=== PATIENT | male | born 1985 | race Two or more races ===

== ENCOUNTER 2024-03-07 12:49 | Inpatient (IN) | payer MEDICAID, SELFPAY ==
[2024-03-07 13:04] VITALS: BP 150/67; PULSE 107; RESP 18; TEMP 37.1; O2SAT 97; BMI 36.8
--- NOTE | 2024-03-07 13:08 | XR_ITS ---
Examination: Duplex scan of the upper extremity, unilateral left complete Date and time of exam: March 07, 2024 1325 hours INDICATIONS: Left arm swelling redness and pain post drug injection 3 days ago Technique: Duplex scan of the extremity veins using B-mode/grayscale imaging and Doppler spectral analysis and color flow Attention is directed to internal echogenicity, compression and augmentation involving these veins, color flow assessment, spectral analysis Findings: Major deep venous structures in the extremity demonstrate normal course and caliber. There is no evidence of deep vein thrombosis. Normal color flow and spectral analysis Impression: Negative for DVT..
--- NOTE | 2024-03-07 13:08 | XR_ITS ---
Examination: Forearm, left, 2 views. Technique: Forearm, AP, lateral 2 views Date and time of exam: March 07, 2024 1312 hours INDICATIONS: Injury to the forearm today, forearm pain. FINDINGS: No acute fracture No dislocation No foreign body IMPRESSION: No opaque foreign body
--- NOTE | 2024-03-07 13:11 | XR_ITS ---
Examination: CT left upper extremity with intravenous contrast, 2-D sagittal reconstructions. 2-D coronal reconstructions. 3-D reconstructions. Date and time of exam:July 05, 2024 1843 hrs. Indications: Left upper extremity redness swelling and pain today CTDI: vol (mGy):7.32 DLP: (mGycm):609 Technique: Multiple 1.25 mm axial sections of the left upper extremity post 60 cc Isovue-370 intravenous have been obtained. 2-D sagittal and coronal reconstructions have been obtained. 3-D reconstructions have been obtained. Low dose protocols were performed. One or more of the following dose reduction techniques were used; automated exposure control, adjustment of the mA and/or KV according to patient size, use of iterative reconstruction technique. Findings: Humeral head shaft intact, no shoulder dislocation Radius ulna intact No cortical bone destruction Edema in the soft tissue anterior and lateral upper arm, more prominent edema surrounding the distal humerus and the elbow with skin thickening Similar edema surrounding the entire forearm No fluid-filled drainable abscess on the CT study Impression: No cortical bone destruction Extensive cellulitis as above No soft tissue drainable abscess noted on these images Consider MRI forearm follow-up for optimum soft tissue assessment
--- NOTE | 2024-03-07 13:13 | EDNOTE_ITS ---
Upper Extremity Injury RME/HPI General Chief Complaint: Extremity Injury, Lower Stated Complaint: LEFT HAND/ARM PAIN/SWELLING Time Seen by Provider: 03/07/24 12:55 Arrival date/time: 03/07/24 12:49 RME / HPI RME / HPI narrative: 38-year-old male patient with significant history of IV drug use, using meth, according to him he missed the needle, more than 3 days ago, since then has been having worsening swelling to the left upper extremity, separately moderate. Patient denies any fever. But complain of pain, getting worse, severity moderate. Patient denies any other complaint. No medication was taken prior to arrival. Related Data Previous Rx's ?Medication ?Instructions ?Recorded clindamycin HCl 300 mg capsule 300 mg PO TID #20 caps 08/20/23 ibuprofen 600 mg tablet 600 mg PO Q8H PRN pain #14 tabs 08/20/23 Allergies Allergy/AdvReac Type Severity Reaction Status Date / Time NKA* Allergy Uncoded 03/07/24 12:52 Review of Systems Review of Systems Narrative Review of Systems: Review of system reviewed and within normal limits except mentioned in HPI ED Exam Narrative Physical exam: VITAL SIGNS: Reviewed. GENERAL APPEARANCE: Alert and interactive, follows commands, no acute distress, HEAD AND FACE: Non-traumatic. ENT: PERRL, pink conjunctivitis, eyelid no trauma, Mucous membrane moist. NECK: Supple, nontender, no nuchal rigidity. CHEST: No tenderness, no crepitus, no paradoxical movement, no retractions. LUNGS: Clear, well ventilated, symmetric, no rales, no wheezing, no ronchi, no stridor, good breath sounds bilaterally. HEART: Regular rate, regular rhythm, no murmur, no gallops. ABDOMEN: Soft, positive bowel sounds, nondistended, no guarding, nontender, no rebound, no masses, RECTAL: Deferred. GENITAL: Deferred. NEUROLOGICAL: Gross motor function intact sensory function intact, Appropriate for age. MUSCULOSKELETAL: low back nontender, full range of motion. EXTREMITIES: Left upper extremity swelling, hard to touch, nonfluctuant, from shoulder all the way to the hand, limited range of motion. SKIN: Color pink, dry, no rash, no lacerations, no abrasions, no contusions. LYMPHATICS: Deferred. Course Quality Measures none Orders Category Date Time Status COVID-19 Screening Questionnaire NOW Care 03/07/24 20:[address] Screening NOW Care 03/07/24 13:13 Active Decision to Admit X1 Care 03/07/24 20:59 Active Insert IV NOW Care 03/07/24 13:[address] UE LT w con Stat Exams 03/07/24 13:11 Completed US venous doppler UE LT Stat Exams 03/07/24 13:08 Completed XR forearm LT 2V Stat Exams 03/07/24 13:08 Completed Blood Culture (Lab) Stat Lab 03/07/24 13:46 Received CBC Stat Lab 03/07/24 13:51 Completed CMP [Comprehensive Metabolic Panel] Stat Lab 03/07/24 13:51 Completed CRP [C-Reactive Protein] Stat Lab 03/07/24 13:51 Completed ESR [Sed Rate (ESR)] Stat Lab 03/07/24 13:51 Completed HIV (1&2) Antibody Rapid Stat Lab 03/07/24 13:51 Completed Hepatitis Acute Panel Stat Lab 03/07/24 13:51 Completed Lactic Acid [Lactate (Lactic Acid)] Stat Lab 03/07/24 13:51 Completed PT [Prothrombin Time with INR] Stat Lab 03/07/24 13:51 Completed PTT [Partial Thromboplastin Time] Stat Lab 03/07/24 13:51 Completed Procalcitonin Stat Lab 03/07/24 13:51 Completed Piper/Tazo 3.375 gm [Zosyn] Med 03/07/24 20:37 Active 3.375 gm in 50 ml IV X1 Piper/Tazo Inj [Zosyn Inj] 3.375 gm Med 03/07/24 13:08 Discontinued Sodium Chloride 0.9% (P) [Ns 0.9% (P)] 50 ml IV X1 Vancomycin Inj 1,000 mg Med 03/07/24 13:09 Discontinued Sodium Chloride 0.9% 250 ml [Ns] 250 ml IV X1 Vancomycin Inj 1,000 mg Med 03/07/24 20:36 Active Sodium Chloride 0.9% 250 ml [Ns] 250 ml IV X1 Vital Signs Vital signs: Vital Signs Temperature 98.8 F 03/07/24 13:04 Pulse Rate 107 H 03/07/24 13:04 Respiratory Rate 18 03/07/24 13:04 Blood Pressure 150/67 H 03/07/24 13:04 Pulse Oximetry (%) 97 03/07/24 13:04 Oxygen Delivery Method Room Air 03/07/24 13:04 Extremity Injury MDM Narrative MDM Narrative:: 38-year-old male patient with significant history of IV drug use, using meth, according to him he missed the needle, more than 3 days ago, since then has been having worsening swelling to the left upper extremity, separately moderate. Patient denies any fever. But complain of pain, getting worse, severity moderate. Patient denies any other complaint. No medication was taken prior to arrival. Laboratory workup all came back unremarkable except for ESR 44, potassium 3.3 C- reactive protein of 15.4. CT scan of the upper extremity showed extensive cellulitis whole upper extremity. Venous Doppler ultrasound left upper extremity negative for DVT x-ray of the forearm negative for bony abnormality. Patient received IV Vanco and IV Zosyn. Spoke with Dr. Santamaria, hospitalist, and admitted the patient. Patient data External records reviewed:: None Clinical information provided by:: none Social determinants that could affect healthcare access:: substance use Patient has the following chronic illnesses:: IV drug use How is presenting disease/condition affected by chronic disease/condition?: exacerbated by Evaluation data The following diagnostics were reviewed and interpreted by me:: lab results and radiology exam(s) Lab and/or radiology exams considered but not ordered:: None Interpretation Summary: Laboratory workup all came back unremarkable except for ESR 44, potassium 3.3 C- reactive protein of 15.4. CT scan of the upper extremity showed extensive cellulitis whole upper extremity. Venous Doppler ultrasound left upper extremity negative for DVT x-ray of the forearm negative for bony abnormality. Medications / Prescriptions Medications or Prescriptions considered but not ordered:: None Medication administrations:: Medication Administration History Vancomycin HCl 1,000 mg/ (Sodium Chloride) 250 mls @ 150 mls/hr IV X1 ONE Stop: 03/07/24 22:15 Last Admin: 03/07/24 20:43 Dose: 150 mls/hr Documented By: YAA Comments: med not scanning verified with davidson hunter Piperacillin/Tazobactam/Dextrose (Zosyn) 3.375 gm in 50 mls @ 100 mls/hr IV X1 ONE Stop: 03/07/24 21:06 Last Admin: 03/07/24 20:41 Dose: 100 mls/hr Documented By: YAA Discontinued Medications Vancomycin HCl 1,000 mg/ (Sodium Chloride) 250 mls @ 150 mls/hr IV X1 ONE Stop: 03/07/24 14:48 Last Admin: 03/07/24 20:38 Dose: Not Given Documented By: AC Non-Admin Reason: Medication Not Available Piperacillin Sod/Tazobactam (Sod 3.375 gm/ Sodium Chloride) 50 mls @ 100 mls/hr IV X1 ONE Stop: 03/07/24 13:37 Last Admin: 03/07/24 20:38 Dose: Not Given Documented By: AC Non-Admin Reason: Medication Not Available Vanco, Zosyn, Consultations Consultation(s) initiated? (list below): No Diagnosis Upper Extremity Injury Differential Diagnosis: other (IV drug user, forearm abscess, upper extremity left cellulitis) Most likely diagnosis given after review of the tests above:: Left upper extremity cellulitis Admission Indicated Admission indicated?: indicated Explain why admission is indicated or not indicated:: Patient is to be admitted for further management. And IV antibiotics Admission Request Was there a request for admission?: Yes Admission Attestation Admission request attestation: Discussed case with [Dr Santamaria] from Hospitalist service regarding admission. Discussed patients ED course, exam findings, labs, and radiology results. The Hospitalist [agrees] to accept the patient for admission. Disposition Plan Disposition Plan: Admit Discharge Plan Prescriptions/Referrals Prescriptions/Med Rec: No Action clindamycin HCl 300 mg capsule 300 mg PO TID Qty: 20 0RF ibuprofen 600 mg tablet 600 mg PO Q8H PRN (Reason: pain) Qty: 14 0RF Referrals: No Primary/Family,Physician [Primary Care Provider] - In 1 week Problem List Clinical Impression: Cellulitis of left upper extremity, IVDU (intravenous drug user) Patient/Caregiver Discharge Instructions Print Language: Mexican
[2024-03-07 14:10] LABS: Lactate (Lactic Acid) 1.1 mMol/L (0.4-2.0)
[2024-03-07 14:11] LABS: Basophils % (Auto) 0 % (0-2.5); Eosinophils % (Auto) 0 % (0-10); Hemoglobin 13.5 g/dL (13.5-16.0); Immature Granulocytes % (Auto) 0 % (0-0); Immature Granulocytes Auto 0.04 Thou/mm3 (0.00-0.00); Lymphocytes # (Auto) 1.3 Thou/mm3 (1.0-4.8); Lymphocytes % (Auto) 13 % (10-50); Mean Corpuscular HGB Conc 33.8 g/dl (31.0-37.0); Mean Corpuscular Hemoglobin 28.8 pg (25.0-35.0); Mean Corpuscular Volume 85 fL (80-100); Monocytes % (Auto) 10 % (0-12); Neutrophils # (Auto) 7.7 Thou/mm3 (1.8-7.7); Neutrophils % (Auto) 76 % (37-80); Nucleated Red Blood Cell % 0 /100 WBC (0); Platelet Count 225 Thou/mm3 (140-440); RDW Standard Deviation 43.8 fL (35.1-43.9); Red Blood Count 4.69 Miln/mm3 (4.50-5.90); White Blood Count 10.1 Thou/mm3 (3.8-10.6)
[2024-03-07 14:32] LABS: Partial Thromboplastin Time 34.6 Seconds (22.0-36.0); Prothrombin Time 11.4 Seconds (9.0-12.2)
[2024-03-07 14:40] LABS: Alanine Aminotransferase 18 U/L (10-49); Albumin, Serum 4.3 gm/dL (3.5-5.0); Albumin/Globulin Ratio 1.4 (1.2-2.2); Alkaline Phosphatase 84 U/L (46-116); Anion Gap 7 (7-16); Aspartate Amino Transferase 29 U/L (0-34); BUN/Creatinine Ratio 12 Ratio (12-20); Bilirubin,Total 0.4 mg/dL (0.3-1.2); Blood Urea Nitrogen 12 mg/dL (9-23); C-Reactive Protein 15.4 mg/dL (0.0-0.9); Calcium 8.3 mg/dL (8.3-10.6); Calcium (Corrected) 8.3 mg/dL (8.5-10.1); Carbon Dioxide 27.2 mMol/L (20.0-31.0); Chloride 97 mMol/L (98-107); Estimated Creatinine Clearance 130.6 mL/min (>60); Glucose 130 mg/dL (74-106); Osmolality,Calculated 264 (275-295); Potassium 3.3 mMol/L (3.4-5.1); Procalcitonin 0.22 ng/ml (0.0-0.49); Sodium 131 mMol/L (136-145); Total Protein 7.3 gm/dL (5.7-8.2); eGFR > 60 See Note
[2024-03-07 15:20] LABS: Hepatitis A Antibody IgM Non Reactive (Non React); Hepatitis B Core Antibody IgM Non Reactive (Non React); Hepatitis B Surface Antigen Non Reactive (Non React); Hepatitis C Antibody Non Reactive (Non React); Sed Rate (ESR) 44 mm/hr (0-15)
[2024-03-07 15:21] LABS: HIV (1&2) Antibody Rapid Non-Reactive
[2024-03-07] MEDS: PIPER/TAZO 3.375 GM 3.375 GM/50 ML BAG IV (20:41)
[2024-03-07] MEDS: Vancomycin Inj 1,000 MG in SODIUM CHLORIDE 0.9% 250 ML 250 ML 150 MG IV (20:43)
--- NOTE | 2024-03-07 21:04 | EKG_ITS ---
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
[2024-03-07 21:22] VITALS: BP 127/83; PULSE 101; RESP 20; TEMP 36.9; O2SAT 97
--- NOTE | 2024-03-07 21:24 | XR_ITS ---
Examination: AP chest single view Technique one AP portable upright chest single view Exam date and time: March 07, 2024 2141 hrs. Comparison December 12, 2011 Indications: Admission chest x-ray Findings: Normal heart size Mildly prominent hilar regions No pneumonia or pulmonary edema Intact osseous structures Impression: No pneumonia or pulmonary edema
[2024-03-07] MEDS: SODIUM CHLORIDE 0.9% 1000 ML 1,000 ML 100 ML IV (21:34)
[2024-03-07] MEDS: POTASSIUM CHLORIDE 20 mEq TABCR 40 MEQ PO (21:34)
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
[2024-03-07] MEDS: CALCIUM CARBONATE 600 MG TABLET PO (22:40)
[2024-03-07 23:14] LABS: Hepatitis A Antibody IgM Non Reactive (Non React); Hepatitis B Core Antibody IgM Non Reactive (Non React); Hepatitis B Surface Antigen Non Reactive (Non React); Hepatitis C Antibody Non Reactive (Non React)
[2024-03-07] MEDS: ALBUTEROL/IPRATROPIUM (Duoneb) RT SOL 3 ML NEBU INH (23:25)
[2024-03-07 23:26] VITALS: PULSE 104; RESP 21; O2SAT 99
[2024-03-07 23:57] LABS: HIV (1&2) Antibody Rapid Non-Reactive
[2024-03-08] VITALS (13 sets, daily range): BP systolic 127–174; BP diastolic 85–115; PULSE 79–98; RESP 16–97; TEMP 36.4–37.2; O2SAT 96–100; BMI 36.9
[2024-03-08 04:53] LABS: Basophils % (Auto) 0 % (0-2.5); Eosinophils # (Auto) 0.1 Thou/mm3 (0.0-0.5); Eosinophils % (Auto) 1 % (0-10); Hematocrit 35.7 % (41.0-53.0); Hemoglobin 12.4 g/dL (13.5-16.0); Immature Granulocytes % (Auto) 0 % (0-0); Immature Granulocytes Auto 0.03 Thou/mm3 (0.00-0.00); Lymphocytes # (Auto) 1.4 Thou/mm3 (1.0-4.8); Lymphocytes % (Auto) 15 % (10-50); Mean Corpuscular HGB Conc 34.7 g/dl (31.0-37.0); Mean Corpuscular Volume 83 fL (80-100); Monocytes # (Auto) 0.9 Thou/mm3 (0.0-0.8); Monocytes % (Auto) 10 % (0-12); Neutrophils % (Auto) 75 % (37-80); Nucleated Red Blood Cell % 0 /100 WBC (0); Platelet Count 202 Thou/mm3 (140-440); RDW Standard Deviation 42.7 fL (35.1-43.9); Red Blood Count 4.28 Miln/mm3 (4.50-5.90); White Blood Count 9.4 Thou/mm3 (3.8-10.6)
[2024-03-08 05:08] LABS: Anion Gap 7 (7-16); BUN/Creatinine Ratio 11 Ratio (12-20); Blood Urea Nitrogen 10 mg/dL (9-23); Carbon Dioxide 26.9 mMol/L (20.0-31.0); Chloride 100 mMol/L (98-107); Creatinine (Component) 0.9 mg/dL (0.6-1.3); Estimated Creatinine Clearance 145.1 mL/min (>60); Glucose 150 mg/dL (74-106); Magnesium 1.8 mg/dL (1.6-2.6); Osmolality,Calculated 270 (275-295); Phosphorous 2.8 mg/dL (2.4-5.1); Potassium 3.4 mMol/L (3.4-5.1); Sodium 134 mMol/L (136-145); eGFR > 60 See Note
--- NOTE | 2024-03-08 06:05 | PC.NURSE ---
Received report from computer engineer, pt going to room
--- NOTE | 2024-03-08 06:15 | PC.NURSE ---
Pt. to room 369, room orientation, awake, alert, oriented, left arm warm to touch visible swelling with redness noted from fingertips to mid humerous. Bed in low position, locked, call light within reach, will cont. to monitor.
[2024-03-08] MEDS: ALBUTEROL/IPRATROPIUM (Duoneb) RT SOL 3 ML NEBU INH ×3 (07:43→22:54)
--- NOTE | 2024-03-08 08:22 | PC.NURSE ---
Received pt. to room 3369 via wc from ER. Awake, alert, oriented, and ambulatory. Room orientation, left arm warm totouch, swollen and red from finger tips to mid humerous, pulse palpable. bed locked and in low position, will cont. to monitor.
[2024-03-08] MEDS: ENOXAPARIN SOD INJ 40 MG/0.4 ML SYRINGE SC (08:44)
[2024-03-08] MEDS: VANCOMYCIN/WATER 1250 MG IVPB 250 ML 120 MG IV ×3 (08:45→22:10)
--- NOTE | 2024-03-08 10:44 | PD.RESPRO ---
Documentation for date of: 03/08/24 Subjective Subjective Interval history: 03/08: Pt is an overnight admit. He is seen at bed side this morning. pt is very tearful and states his mother past recently which is causing him to use meth more often. he states he was trying to inject it in his right arm but missed the vein which caused the cellulitis in his arm and is very painful. he admits to regular meth use. CT shows edema of the soft tissue EKG normal sinus rhythm, CXR shows no pneumonia and no edema. Doppler ultrasound was done and is negative for DVT. pt is started on IV vancomycin. pt. will require crisis evaluation prior to discharge once he is medically cleared for discharged. Exam Vital Signs Temp Pulse Resp BP Pulse Ox O2 Del Method 97.6 F 89 16 144/96 H 98 Room Air 03/08/24 08:00 03/08/24 08:58 03/08/24 08:58 03/08/24 08:00 03/08/24 08:00 03/08/24 08:00 Narrative Exam GENERAL: A&Ox3 . Awake, Not in acute distress but tearful when speaks of his mother recent passing NEURO: no focal neurological deficits HEENT: Atraumatic, Normocephalic. mucous membranes moist. Eyes open, symmetrical, & clear HEART: Normal Heart Sounds LUNGS: Clear to auscultation with no wheezing or crackles. ABDOMEN: soft, non-distended, non-tender, bowel sounds heard, no guarding or rebound tenderness SKIN: No Rash or ecchymoses, Warm, dry and intact. Left arm grossly swollen, erythematous and tender to touch. EXTREMITIES:left upper extremity edema, tenderness, able to move all 4 extremities, pedal pulses palpated Objective Labs 03/09/24 05:29 03/09/24 05:29 Labs: Laboratory Results - last 24 hr 03/07/24 03/07/24 03/08/24 13:51 21:58 04:30 WBC 10.1 9.4 RBC 4.69 4.28 L Hgb 13.5 12.4 L Hct 40.0 L 35.7 L MCV 85 83 MCH 28.8 29.0 MCHC 33.8 34.7 RDW Std Deviation 43.8 42.7 Plt Count 225 202 Neut % (Auto) 76 75 Lymph % (Auto) 13 15 [place] % (Auto) 10 10 Eos % (Auto) 0 1 Baso % (Auto) 0 0 Neut # (Auto) 7.7 7.0 Lymph # (Auto) 1.3 1.4 [place] # (Auto) 1.0 H 0.9 H Eos # (Auto) 0.0 0.1 Baso # (Auto) 0.0 0.0 Immature Gran # (Auto) 0.04 H 0.03 H Absolute Nucleated RBC 0.00 0.00 Immature Gran % 0 0 Nucleated RBC % 0 0 ESR 44 H PT 11.4 INR 1.0 APTT 34.6 Sodium 131 L 134 L Potassium 3.3 L 3.4 Chloride 97 L 100 Carbon Dioxide 27.2 26.9 Anion Gap 7 7 BUN 12 10 Creatinine 1.0 0.9 Estim Creat Clear Calc 130.6 145.1 eGFR > 60 > 60 BUN/Creatinine Ratio 12 11 L Glucose 130 H 150 H Calculated Osmolality 264 L 270 L Lactic Acid 1.1 Calcium 8.3 8.0 L Corrected Calcium 8.3 L Phosphorus 2.8 Magnesium 1.8 Total Bilirubin 0.4 AST 29 ALT 18 Alkaline Phosphatase 84 C-Reactive Prot, Quant 15.4 H Total Protein 7.3 Albumin 4.3 Globulin 3.0 Albumin/Globulin Ratio 1.4 Procalcitonin 0.22 Hepatitis A IgM Ab Non Reactive Non Reactive Hep Bs Antigen Non Reactive Non Reactive Hep B Core IgM Ab Non Reactive Non Reactive Hepatitis C Antibody Non Reactive Non Reactive HIV 1&2 Antibody Rapid Non-Reactive Non-Reactive Quality Measures Quality Measures none Assessment & Plan Assessment Current Active Medications: Generic Name Dose Route Start Last Admin Trade Name Freq PRN Reason Stop Dose Admin Acetaminophen 650 mg 03/07/24 21:14 Acetaminophen 325 Mg Tablet PO 04/06/24 21:13 Q6H PRN Fever >100.4 or Pain 1-10 Hydrocodone Bitart/Acetaminophen 1 tab 03/07/24 21:14 Hydrocodone/Apap 5/325 Tablet PO 03/12/24 21:13 Q6H PRN PAIN SCALE 7-10 (Severe Albuterol/Ipratropium 3 ml 03/07/24 23:00 03/08/24 07:43 Albuterol/Ipratropium (Duoneb) Rt Manisha 3 Ml Nebu INH 04/06/24 22:59 3 ml Q8HRRT BLANCHE Administration Enoxaparin Sodium 40 mg 03/08/24 09:00 03/08/24 08:44 Enoxaparin Sod Inj 40 Mg/0.4 Ml Syringe SC 03/22/24 08:59 40 mg QDAY BLANCHE Administration Guaifenesin 200 mg 03/07/24 21:39 Guaifenesin Syrup 200 Mg/10 Ml Udc PO 04/06/24 21:38 QID PRN COUGH OR CONGESTION Protocol Vancomycin HCl 250 mls @ 120 mls/hr 03/08/24 08:45 03/08/24 08:45 Vancomycin/Water 1250 Mg Ivpb IV 03/15/24 08:44 120 mls/hr Q8HR BLANCHE Administration Protocol Ondansetron HCl 4 mg 03/07/24 21:14 Ondansetron Inj 2 Mg/Ml Inj 2 Ml IV 04/06/24 21:13 Q6H PRN NAUSEA OR VOMITING Protocol Pharmacy Consult 1 each 03/08/24 09:00 Vancomycin Pharmacy To Dose 1 Each Each IV 04/07/24 08:59 QDAY PRN PROTOCOL Plan Patient is a 38-year-old male with past medical history significant for essential hypertension, IV meth use, obesity class II and umbilical hernia presenting today with a chief complaint of progressively worsening left arm swelling. Patient will be admitted for treatment and management of progressively worsening cellulitis. #Left arm swelling #Left arm cellulitis #Left arm DVT ruled out Patient attempted to use IV meth 4 days ago but missed his vein and injected subcutaneously. Since then has had progressively worsening left arm swelling associated with erythema and pain. On exam left arm extremely erythematous, tender to touch with no pus or drainage noted. CT upper extremity revealed cellulitis pattern of left upper extremity, no signs of abscess. Upper extremity Doppler ultrasound ruled out DVT. CRP 15.4 Plan: ? Regular diet ? MRSA swab ? Vancomycin 1 g IV daily started on [03/07?for MRSA coverage as patient is IV drug user and also had progressively worsening left arm swelling over a few days. ? Hydrocodone 1 tab p.o. every 4 hourly as needed for pain. #Productive cough -resolved #Likely upper respiratory tract infection Patient complained of a cough productive of green sputum for the past week. Denied any fever, SOB or wheeze. Chest x-ray negative for any signs of consolidation, pulmonary edema or pleural effusion. Plan: ? Sputum culture and Gram stain ordered ? Influenza A&B rapid panel ordered ? DuoNebs Q8 hourly as needed ordered ? Guaifenesin 200 Mg p.o. 4 times daily as needed for cough or congestion ordered ? Chest physiotherapy every 4 hourly ? Acapella every 4 hourly ordered #Essential hypertension Patient states that he does not take any medication and does not want to. Plan: ? Monitor blood pressures while inpatient. ? Day team to decide on starting antihypertensives. #IV methamphetamine use #History of incarceration Patient states that he uses IV methamphetamine every day since he was 18 years old. Patient says he is a Meth Addict Plan: - Patient extensively counseled and advised to quit using methamphetamine. Patient stated that he does not want to quit and has no plans of quitting as well. ? HIV 1 and 2 rapid panel ordered to rule out as patient is IV drug user- negative ? Hepatitis panel ordered to rule out as patient is an IV drug user-negative #Hypokalemia #Hypocalcemia K3.3, corrected calcium 8.3 Plan: ? KCl 40 mEq p.o. x 1 ? Calcium carbonate 600 Mg p.o. x 1 Health maintenance: Disposition: IV antibiotics. Diet: Regular Lines: pIVs GI Prophylaxis: Not indicated Thrombo Prophylaxis: Enoxaparin 40 mg sc Qday Code status: DNR Assessment and plan discussed with my senior resident Dr. Shaw & attending physician Dr. Caty Diaz ([id number]-[id number])- Internal medicine resident Attending Provider Attestation/Addendum I reviewed labs, imaging, EKG, home medications and prior available records. Face to face evaluation was performed by me. I have personally examined the patient and discussed assessment and plan with the IM team. I reviewed the resident note and agree with the plan with exceptions as below. Left upper extremity cellulitis Methamphetamine use IV drug use Added cefazolin to vancomycin. Elevation of left upper extremity Counseled the patient regarding the importance of not using IV drugs or other recreational drugs Discussed with social research assistant given his depressed mood. May need crisis team evaluation upon medical clearance
--- NOTE | 2024-03-08 11:24 | PC.SS ---
SS update: received call from Dr. Bacon requesting a mental health evaluation for the patient as patient has made statements regarding SI and being depressed due to the loss of his mother. Patient is currently pending medical clearance at this time.
--- NOTE | 2024-03-08 12:36 | PC.NURSE ---
Pt B/P elevated to 150/103, left arm elevated on pillows, spoke with Dr Hein, order received to give 1X dose of 1mg Morphin, will carry out new order after verified by pharmacy.
[2024-03-08] MEDS: ceFAZolin/D5W 1 GM IVPB 1 GM/50 ML BAG IV (12:42)
--- NOTE | 2024-03-08 12:42 | PC.SS ---
Patient is a 38 year-old male who presented to the ED for worsening swelling of the left upper extremity as resulted from missed needle insertion of methamphetamine use per patient. Patient is currently admitted for cellulitis and to be receiving IV antibiotics. Patient's medical team has requested a mental health evaluation for the patient as patient made SI statements regarding not wanting to live. CAITY Beck met with patient [id number] to complete initial assessment. ASW introduced self, role, and reason for this contact. ASW disclosed limits of confidentiality as well. Patient appeared alert and oriented to self, place, and situation. Patient was pleasant and cooperative during the assessment. No signs of delusions, paranoia or visual hallucinations observed. Patient informs he is homeless. Patient states he has been homeless for about a year now. Patient informs he resides in [place] and [facility] and he goes back and forth. Patient reports he is able to ambulate independently and complete his own ADL?s. Patient states he is not employed. 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 Patient denies having a primary care doctor, informs he has not seen a doctor in a very ling time. Patient reports he made a comment of wanting to as he continues to mourn the loss of his mother, who past away last year in March 2023. Patient informs he was close to his mother and helped care for her. Patient informs after her loss, he became homeless and there were family dynamics in which he no longer speaks to his sister or family. Patient denies having a support network. Patient informs he has a father who is also homeless and a sister, that patient does not speak to. Patient did not wish to provide an emergency contact, although on patient's facesheet is listed a sister, Paola Eli . Patient denies having a mental health diagnosis and or taking any psychotropic medications. Patient denied currently having suicidal plan or intent. Patient denied homicidal ideation. Patient denies having visual and auditory hallucinations. Patient denied past suicidal attempts. Patient denies ever being placed on a 5150-hold in the past. Patient reports he is a methamphetamine user. Patient reports he has been a user for more than 20 years now and does not plan to stop use. Patient denies other drug or alcohol consumption being used. Patient denies being connected to AOD services at this time or in the past. Provided the patient with resources including AOD services, mental health, crisis numbers, retirement information and local authority contact information. Informed the patient of his current status and informed him geriatric social worker would be following up with him once he has been medically cleared. Patient verbalized understanding.
[2024-03-08] MEDS: MORPHINE SULF INJ 10 MG/ML VIAL IVP (12:51)
--- NOTE | 2024-03-08 13:31 | PC.NURSE ---
Spoke with Dr Diaz,informed her of B/P 167/110 at 1328, MD will order something for B/P, will await orders and carry out.
[2024-03-08] MEDS: LOSARTAN POTASSIUM 25 MG TABLET 50 MG PO (14:08)
--- NOTE | 2024-03-08 14:17 | PC.SS ---
Patient is a 38 year-old male who presented to the ED for worsening swelling of the left upper extremity as resulted from missed needle insertion of methamphetamine use per patient. Patient is currently admitted for cellulitis and to be receiving IV antibiotics. Patient's medical team has requested a mental health evaluation for the patient as patient made SI statements regarding not wanting to live. CAITY Beck met with patient [id number] to complete initial assessment. ASW introduced self, role, and reason for this contact. ASW disclosed limits of confidentiality as well. Patient appeared alert and oriented to self, place, and situation. Patient was pleasant and cooperative during the assessment. No signs of delusions, paranoia or visual hallucinations observed. Patient informs he is homeless. Patient states he has been homeless for about a year now. Patient informs he resides in [place] and [facility] and he goes back and forth. Patient reports he is able to ambulate independently and complete his own ADL?s. Patient states he is not employed. 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 Patient denies having a primary care doctor, informs he has not seen a doctor in a very long time. Patient reports he made a comment of wanting to as he continues to mourn the loss of his mother, who past away last year in March 2023. Patient informs he was close to his mother and helped care for her. Patient informs after her loss, he became homeless and there were family dynamics in which he no longer speaks to his sister or family. Patient reports he has three children, whom are not under his care or custody. Patient informs 2 of the children are adult with one being incarcerated and the other in the , and the minor child under the custody of her mother. Patient denies knowledge of their whereabouts, informs he does not speak to ex-partner or minor child for many years now. Patient denies having a support network. Patient informs he has a father who is also homeless and a sister, that patient does not speak to. Patient did not wish to provide an emergency contact, although on patient's facesheet is listed a sister, Paola Eli . Patient denies having a mental health diagnosis and or taking any psychotropic medications. Patient denied currently having suicidal plan or intent. Patient denied homicidal ideation. Patient denies having visual and auditory hallucinations. Patient denied past suicidal attempts. Patient denies ever being placed on a 5150-hold in the past. Patient reports he is a methamphetamine user. Patient reports he has been a user for more than 20 years now and does not plan to stop use. Patient denies other drug or alcohol consumption being used. Patient denies being connected to AOD services at this time or in the past. Provided the patient with resources including AOD services, mental health, crisis numbers, half-way information and local authority contact information. Informed the patient of his current status and informed him social work assistant would be following up with him once he has been medically cleared. Patient verbalized understanding.
--- NOTE | 2024-03-08 14:20 | PC.SS ---
SS update: patient is started on IV vancomycin.
[2024-03-08] MEDS: MORPHINE SULF INJ 10 MG/ML VIAL 2 MG IVP (22:08)
[2024-03-09] VITALS (14 sets, daily range): BP systolic 103–179; BP diastolic 80–118; PULSE 67–90; RESP 16–99; TEMP 36–36.8; O2SAT 97–99
[2024-03-09] MEDS: MORPHINE SULF INJ 10 MG/ML VIAL 2 MG IVP (05:35)
[2024-03-09] MEDS: VANCOMYCIN/WATER 1250 MG IVPB 250 ML 120 MG IV ×3 (05:39→21:00)
[2024-03-09 06:24] LABS: Basophils % (Auto) 0 % (0-2.5); Eosinophils # (Auto) 0.3 Thou/mm3 (0.0-0.5); Eosinophils % (Auto) 4 % (0-10); Hematocrit 40.1 % (41.0-53.0); Hemoglobin 13.3 g/dL (13.5-16.0); Immature Granulocytes % (Auto) 0 % (0-0); Immature Granulocytes Auto 0.03 Thou/mm3 (0.00-0.00); Lymphocytes # (Auto) 1.7 Thou/mm3 (1.0-4.8); Lymphocytes % (Auto) 18 % (10-50); Mean Corpuscular HGB Conc 33.2 g/dl (31.0-37.0); Mean Corpuscular Hemoglobin 28.5 pg (25.0-35.0); Mean Corpuscular Volume 86 fL (80-100); Monocytes % (Auto) 10 % (0-12); Neutrophils # (Auto) 6.6 Thou/mm3 (1.8-7.7); Neutrophils % (Auto) 68 % (37-80); Nucleated Red Blood Cell % 0 /100 WBC (0); Platelet Count 235 Thou/mm3 (140-440); RDW Standard Deviation 44.7 fL (35.1-43.9); Red Blood Count 4.67 Miln/mm3 (4.50-5.90); White Blood Count 9.7 Thou/mm3 (3.8-10.6)
[2024-03-09] MEDS: HYDROcodone/APAP 5/325 TABLET 1 TAB PO ×2 (06:34→19:18)
[2024-03-09 07:12] LABS: Anion Gap 8 (7-16); BUN/Creatinine Ratio 10 Ratio (12-20); Blood Urea Nitrogen 8 mg/dL (9-23); Calcium 8.5 mg/dL (8.3-10.6); Carbon Dioxide 26.3 mMol/L (20.0-31.0); Cardiac Risk Estimate 4.6 RATIO (4.0-6.7); Chloride 101 mMol/L (98-107); Cholesterol 91 mg/dL (132-200); Creatinine (Component) 0.8 mg/dL (0.6-1.3); Estimated Creatinine Clearance 163.5 mL/min (>60); Glucose 128 mg/dL (74-106); HDL Cholesterol 20 mg/dL (40-60); LDL Cholesterol,Calculated 45 mg/dL (0-130); Osmolality,Calculated 270 (275-295); Potassium 3.9 mMol/L (3.4-5.1); Sodium 135 mMol/L (136-145); Thyroid Stimulating Hormone 1.47 uIU/mL (0.55-4.78); Triglycerides 132 mg/dL (30-150); eGFR > 60 See Note
[2024-03-09] MEDS: ALBUTEROL/IPRATROPIUM (Duoneb) RT SOL 3 ML NEBU INH ×3 (07:20→23:30)
[2024-03-09 07:31] LABS: Glucose Estimated Average 123 mg/dL (80-131); Hemoglobin A1C 5.9 % Hgb (4.8-6.0)
[2024-03-09 08:28] LABS: Influenza A Ag Negative; Influenza B Ag Negative
[2024-03-09] MEDS: LOSARTAN POTASSIUM 25 MG TABLET 50 MG PO (08:54)
[2024-03-09] MEDS: ENOXAPARIN SOD INJ 40 MG/0.4 ML SYRINGE SC (08:54)
[2024-03-09] MEDS: ceFAZolin/D5W 2 GM IV 2 GM/100 ML BAG IV ×2 (11:41→21:00)
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
[2024-03-09 13:59] LABS: Vancomycin,Trough 10.7 mcg/mL (5.0-10.0)
--- NOTE | 2024-03-09 17:24 | PC.NURSE ---
Pt Blood pressure 179/111. Retook blood pressure. 175/118. Contacted Dr. Shaw. will put in new orders.
--- NOTE | 2024-03-09 17:27 | ESPR_ITS ---
Documentation for date of: 03/09/24 Subjective Subjective Interval history: The patient is evaluated at the bedside, he has been walking in the hallway, complaining of persistent swelling and pain in left upper extremity. Patient has been on IV antibiotics for 48 hours, with there is no change in the swelling or erythema. Noted swelling of the hand and fingers extending up to the elbow. There is radial pulse palpable, and patient is able to flex his fingers to some extent. General surgeon Dr. Hubbard is consulted due to concern for compartment syndrome, who recommended we may require orthopedic surgery for fasciotomy if that is required. For now patient does not have acute compartment syndrome, no abscess was found on CT, but due to cellulitis involving the hand, will consult orthopedic surgery for their expert opinion. Unfortunately we do not have the ability to measure compartment pressures in this hospital. Spoke to orthopedic surgeon Dr. Galeano, who said he will talk to Dr. Hubbard and make the patient n.p.o. he will evaluate the patient. Also noted hypertension, systolic blood pressure in the 170s, added hydralazine for SBP more than 170 and added Coreg in addition to losartan for improved blood pressure control. Exam Vital Signs Temp Pulse Resp BP Pulse Ox O2 Del Method 96.8 F 67 16 140/106 H 99 Room Air 03/09/24 12:00 03/09/24 15:10 03/09/24 15:10 03/09/24 12:00 03/09/24 15:10 03/09/24 12:00 Narrative Exam GENERAL: A&Ox3 . Awake, Not in acute distress but tearful when speaks of his mother recent passing NEURO: no focal neurological deficits HEENT: Atraumatic, Normocephalic. mucous membranes moist. Eyes open, symmetrical, & clear HEART: Normal Heart Sounds LUNGS: Clear to auscultation with no wheezing or crackles. ABDOMEN: soft, non-distended, non-tender, bowel sounds heard, no guarding or rebound tenderness SKIN: No Rash or ecchymoses, Warm, dry and intact. Left arm grossly swollen, erythematous and tender to touch, swelling extending to the hand and fingers. EXTREMITIES:left upper extremity edema, tenderness, able to move all 4 extremities, pedal pulses palpated Objective Labs 03/10/24 04:51 03/10/24 04:51 Labs: Laboratory Results - last 24 hr 03/09/24 03/09/24 03/09/24 05:29 05:50 13:20 WBC 9.7 RBC 4.67 Hgb 13.3 L Hct 40.1 L MCV 86 MCH 28.5 MCHC 33.2 RDW Std Deviation 44.7 H Plt Count 235 D Neut % (Auto) 68 Lymph % (Auto) 18 [place]wood % (Auto) 10 Eos % (Auto) 4 Baso % (Auto) 0 Neut # (Auto) 6.6 Lymph # (Auto) 1.7 [place] # (Auto) 1.0 H Eos # (Auto) 0.3 Baso # (Auto) 0.0 Immature Gran # (Auto) 0.03 H Absolute Nucleated RBC 0.00 Immature Gran % 0 Nucleated RBC % 0 Sodium 135 L Potassium 3.9 D Chloride 101 Carbon Dioxide 26.3 Anion Gap 8 BUN 8 L Creatinine 0.8 Estim Creat Clear Calc 163.5 eGFR > 60 BUN/Creatinine Ratio 10 L Glucose [address] Glu mg/dL 123 Hemoglobin A1c 5.9 Calculated Osmolality 270 L Calcium 8.5 Triglycerides 132 Cholesterol 91 L LDL Cholesterol, Calc 45 HDL Cholesterol 20 L Cholesterol/HDL Ratio 4.6 TSH 1.47 Vancomycin Trough 10.7 H Influenza A (Rapid) Negative Influenza B (Rapid) Negative Quality Measures Quality Measures none Assessment & Plan Assessment Current Active Medications: Generic Name Dose Route Start Last Admin Trade Name Freq PRN Reason Stop Dose Admin Acetaminophen 650 mg 03/08/24 13:34 Acetaminophen 325 Mg Tablet PO 04/06/24 21:13 Q6H PRN Fever >100.4 or Pain 1-3 Hydrocodone Bitart/Acetaminophen 1 tab 03/08/24 13:35 03/09/24 06:34 Hydrocodone/Apap 5/325 Tablet PO 03/12/24 21:13 1 tab Q6H PRN Administration PAIN SCALE 4-6 (Moderate Albuterol/Ipratropium 3 ml 03/07/24 23:00 03/09/24 15:09 Albuterol/Ipratropium (Duoneb) Rt Manisha 3 Ml Nebu INH 04/06/24 22:59 3 ml Q8HRRT BLANCHE Administration Carvedilol 3.125 mg 03/09/24 21:00 Carvedilol 3.125 Mg Tablet PO 04/08/24 20:59 BIDWM BLANCHE Enoxaparin Sodium 40 mg 03/08/24 09:00 03/09/24 08:54 Enoxaparin Sod Inj 40 Mg/0.4 Ml Syringe SC 03/22/24 08:59 40 mg QDAY BLANCHE Administration Guaifenesin 200 mg 03/07/24 21:39 Guaifenesin Syrup 200 Mg/10 Ml Udc PO 04/06/24 21:38 QID PRN COUGH OR CONGESTION Protocol Hydralazine HCl 10 mg 03/09/24 17:25 Hydralazine Inj 20 Mg/Ml Vial IV 04/08/24 17:24 Q6HR PRN sbp > 170 Vancomycin HCl 250 mls @ 120 mls/hr 03/08/24 08:45 03/09/24 14:58 Vancomycin/Water 1250 Mg Ivpb IV 03/15/24 08:44 120 mls/hr Q8HR BLANCHE Administration Protocol Cefazolin Sodium 2 gm in 100 mls @ 200 mls/hr 03/09/24 11:45 03/09/24 11:41 Ancef 2gm Ivpb IV 03/15/24 11:29 200 mls/hr Q8HR BLANCHE Administration Losartan Potassium 50 mg 03/09/24 09:00 03/09/24 08:54 Losartan Potassium 25 Mg Tablet PO 04/08/24 08:59 50 mg QDAY BLANCHE Administration Morphine Sulfate 2 mg 03/08/24 13:32 03/09/24 05:35 Morphine Sulf Inj 10 Mg/Ml Vial IVP 03/13/24 13:31 2 mg Q4HR PRN Administration severe 7-10 Ondansetron HCl 4 mg 03/07/24 21:14 Ondansetron Inj 2 Mg/Ml Inj 2 Ml IV 04/06/24 21:13 Q6H PRN NAUSEA OR VOMITING Protocol Pharmacy Consult 1 each 03/08/24 09:00 Vancomycin Pharmacy To Dose 1 Each Each IV 04/07/24 08:59 QDAY PRN PROTOCOL Plan Patient is a 38-year-old male with past medical history significant for essential hypertension, IV meth use, obesity class II and umbilical hernia presenting today with a chief complaint of progressively worsening left arm swelling. Patient will be admitted for treatment and management of progressively worsening cellulitis. #Left arm swelling #Left arm cellulitis #Left arm DVT ruled out Patient attempted to use IV meth 4 days ago but missed his vein and injected subcutaneously. Since then has had progressively worsening left arm swelling associated with erythema and pain. On exam left arm extremely erythematous, tender to touch with no pus or drainage noted. CT upper extremity revealed cellulitis pattern of left upper extremity, no signs of abscess. Upper extremity Doppler ultrasound ruled out DVT. CRP 15.4 03/09/2024 Patient has been on IV antibiotics for 48 hours, with there is no change in the swelling or erythema. Noted swelling of the hand and fingers extending up to the elbow. There is radial pulse palpable, and patient is able to flex his fingers to some extent. General surgeon Dr. Hubbard is consulted due to concern for compartment syndrome, who recommended we may require orthopedic surgery for fasciotomy if that is required. For now patient does not have acute compartment syndrome, no abscess was found on CT, but due to cellulitis involving the hand, will consult orthopedic surgery for their expert opinion. Unfortunately we do not have the ability to measure compartment pressures in this hospital. Spoke to orthopedic surgeon Dr. Galeano, who said he will talk to Dr. Hubbard and make the patient n.p.o. he will evaluate the patient. Plan: ? Regular diet ? MRSA swab ? Vancomycin 1 g IV daily started on [03/07?for MRSA coverage as patient is IV drug user and also had progressively worsening left arm swelling over a few days. ? Hydrocodone 1 tab p.o. every 4 hourly as needed for pain. ? General Surgery consult Dr. Hubbard's is placed, who recommended to consult orthopedic surgery. ? Orthopedic consulted Dr. Galeano is placed #Productive cough -resolved #Likely upper respiratory tract infection Patient complained of a cough productive of green sputum for the past week. Denied any fever, SOB or wheeze. Chest x-ray negative for any signs of consolidation, pulmonary edema or pleural effusion. Plan: ? Sputum culture and Gram stain ordered ? Influenza A&B rapid panel ordered ? DuoNebs Q8 hourly as needed ordered ? Guaifenesin 200 Mg p.o. 4 times daily as needed for cough or congestion ordered ? Chest physiotherapy every 4 hourly ? Acapella every 4 hourly ordered #Essential hypertension Patient states that he does not take any medication and does not want to. Plan: ? Losartan 50 mg/day ? Coreg 3.125 mg twice daily ? 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 Patient says he is a Meth Addict Plan: - Patient extensively counseled and advised to quit using methamphetamine. Patient stated that he does not want to quit and has no plans of quitting as well. ? HIV 1 and 2 rapid panel ordered to rule out as patient is IV drug user- negative ? Hepatitis panel ordered to rule out as patient is an IV drug user-negative #Hypokalemia #Hypocalcemia K3.3, corrected calcium 8.3 Plan: ? KCl 40 mEq p.o. x 1 ? Calcium carbonate 600 Mg p.o. x 1 Health maintenance: Disposition: IV antibiotics. Diet: Regular Lines: pIVs GI Prophylaxis: Not indicated Thrombo Prophylaxis: Enoxaparin 40 mg sc Qday Code status: DNR Plan of care discussed with my attending Dr. Caty Shaw [id number] Attending Provider Attestation/Addendum I reviewed labs, imaging, EKG, home medications and prior available records. Face to face evaluation was performed by me. I have personally examined the patient and discussed assessment and plan with the IM team. I reviewed the resident note and agree with the plan with exceptions as below. Left upper extremity cellulitis Methamphetamine use IV drug use Concern for compartment syndrome Added cefazolin to vancomycin. Elevation of left upper extremity Counseled the patient regarding the importance of not using IV drugs or other recreational drugs Consulted surgery given the concern for compartment syndrome. Patient does have pulses at this time. No indication for fasciectomy Discussed with social science research assistant given his depressed mood. May need crisis team evaluation upon medical clearance
[2024-03-09] MEDS: hydrALAZINE INJ 20 MG/ML VIAL 10 MG IV (18:16)
[2024-03-09] MEDS: carVEDILOL 3.125 MG TABLET PO (20:52)
--- NOTE | 2024-03-09 21:02 | PC.NURSE ---
MD Bill made aware of BP 170/105, coreg 3.125mg given at 2051, per MD to recheck Bp in an hour and to let her know if still elevated.
[2024-03-09] MEDS: amLODIPine BESYLATE 5 MG TABLET PO (21:49)
[2024-03-10] VITALS (12 sets, daily range): BP systolic 142–184; BP diastolic 66–116; PULSE 71–87; RESP 15–97; TEMP 35.9–37.2; O2SAT 96–98
[2024-03-10] MEDS: hydrALAZINE INJ 20 MG/ML VIAL 10 MG IV (04:20)
[2024-03-10] MEDS: ceFAZolin/D5W 2 GM IV 2 GM/100 ML BAG IV ×3 (05:10→21:08)
[2024-03-10 05:41] LABS: Basophils % (Auto) 0 % (0-2.5); Eosinophils # (Auto) 0.4 Thou/mm3 (0.0-0.5); Eosinophils % (Auto) 4 % (0-10); Hematocrit 41.5 % (41.0-53.0); Hemoglobin 14.1 g/dL (13.5-16.0); Immature Granulocytes % (Auto) 0 % (0-0); Immature Granulocytes Auto 0.04 Thou/mm3 (0.00-0.00); Lymphocytes # (Auto) 1.9 Thou/mm3 (1.0-4.8); Lymphocytes % (Auto) 21 % (10-50); Mean Corpuscular Hemoglobin 29.3 pg (25.0-35.0); Mean Corpuscular Volume 86 fL (80-100); Monocytes # (Auto) 0.8 Thou/mm3 (0.0-0.8); Monocytes % (Auto) 9 % (0-12); Neutrophils # (Auto) 5.8 Thou/mm3 (1.8-7.7); Neutrophils % (Auto) 65 % (37-80); Nucleated Red Blood Cell % 0 /100 WBC (0); Platelet Count 279 Thou/mm3 (140-440); RDW Standard Deviation 44.6 fL (35.1-43.9); Red Blood Count 4.81 Miln/mm3 (4.50-5.90)
[2024-03-10 06:03] LABS: Anion Gap 11 (7-16); BUN/Creatinine Ratio 11 Ratio (12-20); Blood Urea Nitrogen 9 mg/dL (9-23); Calcium 8.9 mg/dL (8.3-10.6); Carbon Dioxide 24.5 mMol/L (20.0-31.0); Chloride 101 mMol/L (98-107); Creatinine (Component) 0.8 mg/dL (0.6-1.3); Estimated Creatinine Clearance 163.5 mL/min (>60); Glucose 99 mg/dL (74-106); Osmolality,Calculated 270 (275-295); Potassium 4.1 mMol/L (3.4-5.1); Sodium 136 mMol/L (136-145); eGFR > 60 See Note
[2024-03-10] MEDS: VANCOMYCIN/WATER 1250 MG IVPB 250 ML 120 MG IV ×3 (06:33→22:28)
[2024-03-10] MEDS: LOSARTAN POTASSIUM 25 MG TABLET 50 MG PO (08:14)
[2024-03-10] MEDS: carVEDILOL 3.125 MG TABLET PO (08:14)
--- NOTE | 2024-03-10 08:57 | PD.ORTHCON ---
HPI Consult details Reason for consultation narrative: Left upper extremity pain History of present illness: Patient is a 38-year-old male who is an IV drug user with left upper extremity swelling and pain for 7 days. He reports he last injected dope 7 days ago and noticed increase in pain 2 days prior to our consultation. He went to the hospital for increased pain was not placed on antibiotics. He reports that his joints actually do not hurt he has no difficulty moving his upper extremity. I asked for him to be n.p.o. just in case as this is a rule out compartment syndrome consult however, the patient is eating in the room. He is very comfortable in the room. He reports that the pain has not increased and has been stable for the last 6 to 7 days. He reports it only hurts over the injection site and that there is some itchiness of the entire upper extremity. The patient did have a CT scan which ruled out abscess. He has no difficulty using his hands or wrists or elbow and is actually swinging it around to demonstrate this for me. I was brought on by general surgery who is already following this case. They would like me to do fasciotomies if this develops into compartment syndrome. Their clinical concern is very well Past Medical History Past Medical History Comments PMH COMMENT: IV drug user Meds Home Medications and Allergies Home Medications ?Medication ?Instructions ?Recorded ?Confirmed ?Type No Known Home Medications 03/08/24 03/08/24 History Allergies Allergy/AdvReac Type Severity Reaction Status Date / Time NKA* Allergy Uncoded 03/07/24 12:52 Exam Vital Signs Temp Pulse Resp BP Pulse Ox O2 Del Method 98.9 F 85 16 152/84 H 96 Room Air 03/10/24 07:40 03/10/24 08:14 03/10/24 07:40 03/10/24 08:14 03/10/24 07:40 03/10/24 07:40 Additional findings Additional findings: Patient is in no acute distress and is cooperative with the examination today. Patient has a normal mood and affect. Breathing is nonlabored. In no respiratory distress. Bilateral extremities were evaluated and demonstrates sensation intact to light touch. Pulses are intact The left upper extremity was evaluated. There is mild erythema over the injection site on the medial aspect of the proximal forearm. It is somewhat tense over this area but distal to the site it is very soft. Is able to give me a thumbs up cross his fingers and give me an okay sign. Sensation is intact to light touch in the radial ulnar and median nerve distributions. He is able to give me a fist and has no pain with passive flexion or extension of his wrist or elbow. He is able to flex and extend his elbow to 0 to 150 degrees with no pain at all. The swelling is isolated to the injection site The right upper extremity demonstrates normal evaluation CT of the left upper extremity demonstrates no abscess Results - Ortho Labs 03/10/24 04:51 03/10/24 04:51 Labs: Short CBC 03/10/24 Range/Units 04:51 WBC 9.0 (3.8-10.6) Thou/mm3 Hgb 14.1 (13.5-16.0) g/dL Hct 41.5 (41.0-53.0) % Plt Count 279 D (140-440) Thou/mm3 BMP 03/10/24 04:51 Sodium 136 Potassium 4.1 Chloride 101 Carbon Dioxide 24.5 BUN 9 Creatinine 0.8 Glucose 99 Calcium 8.9 Assessment & Plan Problem List (1) Cellulitis of left upper extremity: Status: Acute Assessment and plan: Patient is a 38-year-old male with cellulitis of the left upper extremity. He has no difficulty moving any of his joints including his elbow wrist or hands. The pain is isolated to one spot within 5 cm of the injection site. He is completely soft and has no pain anywhere else except for the injection site. The patient reports that his pain has been completely stable for the last 7 days and there has been no increase in pain. His compartments are completely soft and he has no pain with any range of motion and thus I have almost no clinical suspicion for compartment syndrome. Fasciotomies are completely unwarranted at this time and the patient does not want surgery as he was quite unhappy that he was n.p.o. when I saw him. Given that the patient is treated for cellulitis and already has a surgical consult with general surgery, I will let them continue to manage the patient. Please feel free to reconsult me should his symptoms worsen. However, there is almost no suspicion of compartment syndrome as the pain is only isolated to the injection site and not within his forearm compartment. -IV antibiotics -Treatment for cellulitis -Please reconsult me as needed but I do think that multiple surgical consults are unnecessary (2) IVDU (intravenous drug user): Status: Acute
--- NOTE | 2024-03-10 10:11 | PC.NURSE ---
Pt trying to leave AMA. Doesnt want to be NPO and states his arm feels better. Encouraged pt to stay and continue care. Explained to the patient the consequences of discontinuing antibiotics before infection is clear. Contacted Dr. Diaz and made Aware. came by and spoke with the patient. Pt is currently agreeing to stay. Pt no longer NPO. Late tray request ordered.
--- NOTE | 2024-03-10 10:25 | PD.SURPROG ---
Documentation for date of: 03/10/24 Subjective Subjective Brief History: History of Sujata's revealed that the patient had injection 7 days ago and he started having severe swelling. He was admitted with IV antibiotics but the swelling has not regressed. Patient is not having severe pain but is feeling heaviness over the left upper arm due to swelling. Narrative: The patient is complaining of less swelling over the left upper extremity Exam Vital Signs Temp Pulse Resp BP Pulse Ox O2 Del Method 98.9 F 85 16 152/84 H 96 Room Air 03/10/24 07:40 03/10/24 08:14 03/10/24 07:40 03/10/24 08:14 03/10/24 07:40 03/10/24 07:40 Vital signs are normal Routine Extremities Exam Comments: Examination of the left upper extremity showed slightly improved swelling in the forearm but he still has swelling in the upper arm. There is some cellulitis over the back of the forearm. Assessment & Plan Assessment Additional comments: Impression: Cellulitis left forearm Plan Plan: We shall continue the present treatment and wait to see if there is any abscess evaluing in the left forearm
--- NOTE | 2024-03-10 15:01 | PD.RESPRO ---
Documentation for date of: 03/10/24 Subjective Subjective Interval history: 03/10: No acute overnight events patient seen and examined at bedside this morning. There is improvement in the edema and patient's arm and arm is mostly nontender to palpation therefore we will exclude compartment syndrome at this time however at the site of the injection there is possibly an abscess developing patient is encouraged to elevate the arm and will continue to monitor if the redness and tenderness is worse tomorrow will get CT imaging to assess for abscess and possibly incision and drainage if needed. General surgery is following the case. Patient is also complaining of being in the hospital, he mentioned that he wants to leave AMA however patient is encouraged to stay because he needs IV antibiotics. Patient has agreed to stay in the hospital for IV antibiotics and possible I&D until Monday. Patient has no other complaints. Exam Vital Signs Temp Pulse Resp BP Pulse Ox O2 Del Method 96.7 F L 82 16 164/88 H 97 Room Air 03/10/24 11:58 03/10/24 14:58 03/10/24 14:58 03/10/24 11:58 03/10/24 14:58 03/10/24 07:40 Narrative Exam GENERAL: A&Ox3 . Awake, Not in acute distress but tearful when speaks of his mother recent passing NEURO: no focal neurological deficits HEENT: Atraumatic, Normocephalic. mucous membranes moist. Eyes open, symmetrical, & clear HEART: Normal Heart Sounds LUNGS: Clear to auscultation with no wheezing or crackles. ABDOMEN: soft, non-distended, non-tender, bowel sounds heard, no guarding or rebound tenderness SKIN: No Rash or ecchymoses, Warm, dry and intact. Left arm grossly swollen, erythematous and tender to touch, swelling extending to the hand and fingers-improving EXTREMITIES:left upper extremity edema, tenderness, able to move all 4 extremities, pedal pulses palpated Objective Labs 03/10/24 04:51 03/10/24 04:51 Labs: Laboratory Results - last 24 hr 03/10/24 04:51 WBC 9.0 RBC 4.81 Hgb 14.1 Hct 41.5 MCV 86 MCH 29.3 MCHC 34.0 RDW Std Deviation 44.6 H Plt Count 279 D Neut % (Auto) 65 Lymph % (Auto) 21 [place] % (Auto) 9 Eos % (Auto) 4 Baso % (Auto) 0 Neut # (Auto) 5.8 Lymph # (Auto) 1.9 [place] # (Auto) 0.8 Eos # (Auto) 0.4 Baso # (Auto) 0.0 Immature Gran # (Auto) 0.04 H Absolute Nucleated RBC 0.00 Immature Gran % 0 Nucleated RBC % 0 Sodium 136 Potassium 4.1 Chloride 101 Carbon Dioxide 24.5 Anion Gap 11 BUN 9 Creatinine 0.8 Estim Creat Clear Calc 163.5 eGFR > 60 BUN/Creatinine Ratio 11 L Glucose 99 Calculated Osmolality 270 L Calcium 8.9 Quality Measures Quality Measures none Assessment & Plan Assessment Current Active Medications: Generic Name Dose Route Start Last Admin Trade Name Freq PRN Reason Stop Dose Admin Acetaminophen 650 mg 03/08/24 13:34 Acetaminophen 325 Mg Tablet PO 04/06/24 21:13 Q6H PRN Fever >100.4 or Pain 1-3 Hydrocodone Bitart/Acetaminophen 1 tab 03/08/24 13:35 03/09/24 19:18 Hydrocodone/Apap 5/325 Tablet PO 03/12/24 21:13 1 tab Q6H PRN Administration PAIN SCALE 4-6 (Moderate Albuterol/Ipratropium 3 ml 03/10/24 07:05 Albuterol/Ipratropium (Duoneb) Rt Manisha 3 Ml Nebu INH 04/06/24 22:59 Q8HRRT PRN SHORTNESS OF BREATH OR WHEEZE Carvedilol 6.25 mg 03/10/24 17:30 Carvedilol 3.125 Mg Tablet PO 04/09/24 17:29 BIDWM BLANCHE Enoxaparin Sodium 40 mg 03/08/24 09:00 03/10/24 08:19 Enoxaparin Sod Inj 40 Mg/0.4 Ml Syringe SC 03/22/24 08:59 Not Given QDAY BLANCHE Guaifenesin 200 mg 03/07/24 21:39 Guaifenesin Syrup 200 Mg/10 Ml Udc PO 04/06/24 21:38 QID PRN COUGH OR CONGESTION Protocol Hydralazine HCl 10 mg 03/09/24 17:25 03/10/24 04:20 Hydralazine Inj 20 Mg/Ml Vial IV 04/08/24 17:24 10 mg Q6HR PRN Administration sbp > 170 Vancomycin HCl 250 mls @ 120 mls/hr 03/08/24 08:45 03/10/24 13:45 Vancomycin/Water 1250 Mg Ivpb IV 03/15/24 08:44 120 mls/hr Q8HR BLANCHE Administration Protocol Cefazolin Sodium 2 gm in 100 mls @ 200 mls/hr 03/09/24 11:45 03/10/24 14:57 Ancef 2gm Ivpb IV 03/15/24 11:29 200 mls/hr Q8HR BLANCHE Administration Losartan Potassium 50 mg 03/09/24 09:00 03/10/24 08:14 Losartan Potassium 25 Mg Tablet PO 04/08/24 08:59 50 mg QDAY BLANCHE Administration Morphine Sulfate 2 mg 03/08/24 13:32 03/09/24 05:35 Morphine Sulf Inj 10 Mg/Ml Vial IVP 03/13/24 13:31 2 mg Q4HR PRN Administration severe 7-10 Ondansetron HCl 4 mg 03/07/24 21:14 Ondansetron Inj 2 Mg/Ml Inj 2 Ml IV 04/06/24 21:13 Q6H PRN NAUSEA OR VOMITING Protocol Pharmacy Consult 1 each 03/08/24 09:00 Vancomycin Pharmacy To Dose 1 Each Each IV 04/07/24 08:59 QDAY PRN PROTOCOL Plan Patient is a 38-year-old male with past medical history significant for essential hypertension, IV meth use, obesity class II and umbilical hernia presenting today with a chief complaint of progressively worsening left arm swelling. Patient will be admitted for treatment and management of progressively worsening cellulitis. #Left arm swelling #Left arm cellulitis #Left arm DVT ruled out Patient attempted to use IV meth 4 days ago but missed his vein and injected subcutaneously. Since then has had progressively worsening left arm swelling associated with erythema and pain. On exam left arm extremely erythematous, tender to touch with no pus or drainage noted. CT upper extremity revealed cellulitis pattern of left upper extremity, no signs of abscess. Upper extremity Doppler ultrasound ruled out DVT. CRP 15.4 03/09/2024 Patient has been on IV antibiotics for 48 hours, with there is no change in the swelling or erythema. Noted swelling of the hand and fingers extending up to the elbow. There is radial pulse palpable, and patient is able to flex his fingers to some extent. General surgeon Dr. Hubbard is consulted due to concern for compartment syndrome, who recommended we may require orthopedic surgery for fasciotomy if that is required. For now patient does not have acute compartment syndrome, no abscess was found on CT, but due to cellulitis involving the hand, will consult orthopedic surgery for their expert opinion. Unfortunately we do not have the ability to measure compartment pressures in this hospital. Spoke to orthopedic surgeon Dr. Galeano, who said he will talk to Dr. Hubbard - Plan: ? Regular diet ? MRSA swab ? Vancomycin 1 g IV daily started on [03/07?for MRSA coverage as patient is IV drug user and also had progressively worsening left arm swelling over a few days. ? Hydrocodone 1 tab p.o. every 4 hourly as needed for pain. ? General Surgery consult Dr. Hubbard's is placed, who recommended to consult orthopedic surgery. ? Orthopedic consulted Dr. Galeano is placed -per Dr. Hubbard Pt unlikely have compartment syndrome as the arm is not tender, however Pt is likely developing abscess at the site of injection, it is erythematous, very tender. Will continue to monitor- may require imaging for possible I&D #Productive cough -resolved #Likely upper respiratory tract infection Patient complained of a cough productive of green sputum for the past week. Denied any fever, SOB or wheeze. Chest x-ray negative for any signs of consolidation, pulmonary edema or pleural effusion. Plan: ? Sputum culture and Gram stain ordered ? Influenza A&B rapid panel ordered ? DuoNebs Q8 hourly as needed ordered ? Guaifenesin 200 Mg p.o. 4 times daily as needed for cough or congestion ordered ? Chest physiotherapy every 4 hourly ? Acapella every 4 hourly ordered #Essential hypertension Patient states that he does not take any medication and does not want to. Plan: ? Losartan 50 mg/day ? Coreg 3.125 mg twice daily ? 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 Patient says he is a Meth Addict Plan: - Patient extensively counseled and advised to quit using methamphetamine. Patient stated that he does not want to quit and has no plans of quitting as well. ? HIV 1 and 2 rapid panel ordered to rule out as patient is IV drug user- negative ? Hepatitis panel ordered to rule out as patient is an IV drug user-negative #Hypokalemia #Hypocalcemia K3.3, corrected calcium 8.3 Plan: ? KCl 40 mEq p.o. x 1 ? Calcium carbonate 600 Mg p.o. x 1 Health maintenance: Disposition: IV antibiotics. Diet: Regular Lines: pIVs GI Prophylaxis: Not indicated Thrombo Prophylaxis: Enoxaparin 40 mg sc Qday Code status: DNR Assessment and plan discussed with my attending physician Dr. Caty Diaz (PGY-1)- Internal medicine resident Attending Provider Attestation/Addendum I reviewed labs, imaging, EKG, home medications and prior available records. Face to face evaluation was performed by me. I have personally examined the patient and discussed assessment and plan with the IM team. I reviewed the resident note and agree with the plan with exceptions as below. Left upper extremity cellulitis Methamphetamine use IV drug use Concern for compartment syndrome Added cefazolin to vancomycin. Elevation of left upper extremity Counseled the patient regarding the importance of not using IV drugs or other recreational drugs Consulted surgery given the concern for compartment syndrome. Patient does have pulses at this time. No indication for fasciectomy Discussed with social work therapist given his depressed mood. May need crisis team evaluation upon medical clearance
[2024-03-10] MEDS: carVEDILOL 3.125 MG TABLET 6.25 MG PO (17:30)
[2024-03-10] MEDS: DiphenhydrAMINE INJ 50 MG/ML VIAL 25 MG IVP (23:20)
[2024-03-11] VITALS (8 sets, daily range): BP systolic 145–166; BP diastolic 102–120; PULSE 69–75; RESP 16–18; TEMP 36.1–36.5; O2SAT 96–99; BMI 37.0
[2024-03-11] MEDS: ceFAZolin/D5W 2 GM IV 2 GM/100 ML BAG IV (05:31)
[2024-03-11 07:05] LABS: Vancomycin,Trough 13.2 mcg/mL (5.0-10.0)
[2024-03-11] MEDS: carVEDILOL 3.125 MG TABLET 6.25 MG PO (09:52)
[2024-03-11] MEDS: LOSARTAN POTASSIUM 25 MG TABLET 50 MG PO (09:53)
[2024-03-11] MEDS: ENOXAPARIN SOD INJ 40 MG/0.4 ML SYRINGE SC (09:53)
--- NOTE | 2024-03-11 13:55 | PC.NURSE ---
RN made MD aware that the pt is ready to leave AMA. Pt is irritable and wanting to leave right now. I'm leaving by 2 so they better hurry up MD to review crisis notes. will continue to monitor
--- NOTE | 2024-03-11 14:38 | PC.NURSE ---
Lorena colbert called for this patient. Patient was told this AM he would be discharged today. Patient was getting tired of waiting for discharge and began to get irritable and aggressive. stated that the patient was pending clearance from crisis.Security was at bedside to hold patient until crisis cleared patient. Lorena colbert called at 1400. Security walked patient down the back stairwell before clearance was given. Patient was escorted out of the building at 1436 by security. MD was made aware the patient left the building without clearance or signing any d/c or AMA paperwork. MD informed RN that the patient was cleared from crisis. RN was unaware of the clearance from crisis. All IV lines were removed before patient left the building
--- NOTE | 2024-03-11 15:01 | PC.NURSE ---
RN confirmed with social work that the patient was cleared from crisis after the patient had left. disabilities services officer to place referral for outpatient mental health eval.
--- NOTE | 2024-03-11 15:33 | PC.CC ---
Pt Thiago Eli is a 38 yr old male, admitted to hospitalist services for cellulitis. Pt made statements to staff about feelings of depression and thoughts of suicide. Pt with unknown toxicology screening, with reported hx of pt being an IV drug user. [place] Screening negative with pt reporting no SI at this time. ASW met with pt at bedside, introducing self and role in pt care. ASW explained reason for encounter and limitations of confidentiality. Pt presents very guarded, provides short responses to assessment questions and appears agitated. Pt is noted to keep direct eye contact and speaks in a muffled tone, but is otherwise able to respond to all assessment questions. At this time pt is denying any SI/HI, pt denying A/VH. Pt denies any hx of MH. Pt reports he made those statements in a moment of anger. ASW explored pts report of his mother?s passing. Pt confirmed he was his mother?s care provider and after her passing pt was isolated from his family. Pt reports positive psychiatric hospitalization 10+ yrs ago, following a suicide attempt by hanging. Per pt this was the only time he attempted to harm himself. Pt reports he was not given a MH diagnosis and was not prescribed any MH medications. ASW inquired if pt is interested in engaging in traditional MH services, pt declined. Pt unable to identify any family member ASW can make contact with. Pt has been homeless for a year+. ASW informed pt that his case will be staffed to determine if ASW is able to safety plan or pt will be detained on 5150 hold. Pt expressed understanding. 1425-Case consulted with FOIL OPERATOR Melissa Meredith. Pt will be cleared with resources and referral to [facility]. ASW consulted with attending team, informed that pt will be cleared with resources and referral. ASW informed that pt has left the hospital campus, refusing to wait for paperwork. Referral completed for [facility].
--- NOTE | 2024-03-11 15:47 | ESDS_ITS ---
Planned Discharge Date 03/11/24 DS: Providers Provider Date of admission: 03/07/24 21:14 Primary care physician: Physician No Primary/Family Admitting Provider: Bay Santamaria MD Attending Provider on Admission: Mamadou Byrne MD Consults: 03/08/24 06:33 Health [facility]ity Referral - Knowledge Deficit Routine Comment: Positive screening for knowledge deficit needs. Health [facility]ity Referral - Nutrition Routine Comment: Positive screening for nutrition needs. Health Equity Referral - Safety Routine Comment: Positive screening for safety needs. Health [facility]ity Referral - Transportation Routine Comment: Positive screening for transportation needs. Health Equity Referral - Utilities Routine Comment: Positive screening for utility assistance needs. 03/09/24 12:44 Consult to General Surgery Stat Comment: Consulting Provider: Cheryl Alvarez 03/09/24 16:55 Consult to Orthopedic Urgent Comment: Consulting Provider: Chang Galeano 03/11/24 10:17 Referral Psych Eval Stat Comment: Attending Provider on DC: Mayank Diaz MD Discharging Provider: Mayank Diaz MD DS: Diagnosis Problem List Completed Was Problem List Reviewed/Reconciled?: Yes Hospital Course Hospital Course Hospital course: Mr. Eli is a 38-year-old male with past medical history significant for essential hypertension, IV meth use, obesity class II and umbilical hernia prese nted to [facility] on 03/07/2024 with a chief complaint of progressively worsening left arm swelling for the past 4 days after a missed at time of IV meth use patient accidentally injected subcutaneously instead of his vein. On presentation patient arm is swollen erythematous, warm and very tender to touch. Compartment syndrome is ruled out and patient is admitted to the hospital for management of cellulitis without any abscess formation patient was started on IV antibiotics. During hospitalization patient also expressed that he was having feelings of not wanting to live because his mother recently . Patient is heavily counseled against meth use and the danger of drug use. Patient's crisis evaluation is cleared he is not having active suicidal ideation resources are offered by [facility]. Today patient is in good spirit he expresses he does not want to use meth anymore, his symptoms have resolved and swelling has significantly reduced. Patient is is hemodynamically stable to be discharged home. Patient is advised if his symptoms return or worsen to promptly return to the ED. Images Forearm x-ray- No acute fracture, No dislocation, No foreign body Upper extremity CT- No cortical bone destruction, Extensive cellulitis as above, No soft tissue drainable abscess noted Doppler ultrasound of the arm- Negative for DVT EKG-sinus rhythm with nonspecific T wave abnormalities Chest x-rays- No pneumonia or pulmonary edema Discharge Recommendations Continue antibiotic cephalexin and doxycyclin for 10 more days to complete treatment cellulitis. Please continue carvedilol and valsartan for blood pressure control. You may also need to see your primary care physician for medication Reconciliation. In Case of Worsening Symptoms, like Worsening Pain and Decreased Movement around the Elbow or Wrist Joint or Worsening Swelling of Hand and Fingers, Please Return to the Emergency Room Hospitalization Diagnosis #Left arm swelling #Left arm cellulitis #Left arm DVT ruled out #Productive cough -resolved #Likely upper respiratory tract infection #Essential hypertension #IV methamphetamine use #History of incarceration Assessment and plan discussed with my attending physician Dr. Caty Diaz (PGY-1)- Internal medicine resident Time Spent with Patient Time attestation: Total time spent providing and/or coordinating discharge services: Quality: Stroke Pt Provided Written Stroke Discharge Instructions: No Exam Vital Signs Temp Pulse Resp BP Pulse Ox O2 Del Method 97.1 F 69 17 166/120 H 96 Room Air 03/11/24 12:00 03/11/24 12:00 03/11/24 12:00 03/11/24 12:00 03/11/24 12:00 03/11/24 12:00 Discharge Plan Plan Patient Disposition: Left Against Medical Advice Care Plan Goals: Continue antibiotic cephalexin and doxycyclin for 10 more days to complete treatment cellulitis. Please continue carvedilol and valsartan for blood pressure control. You may also need to see your primary care physician for medication Reconciliation. In Case of Worsening Symptoms, like Worsening Pain and Decreased Movement around the Elbow or Wrist Joint or Worsening Swelling of Hand and Fingers, Please Return to the Emergency Room Prescriptions/Referrals Prescriptions/Med Rec: New carvedilol 6.25 mg tablet 6.25 mg PO BIDWM 30 Days Qty: 60 0RF losartan 50 mg tablet 50 mg PO QDAY 30 Days Qty: 30 0RF cephalexin 500 mg capsule 500 mg PO QID 10 Days Qty: 40 0RF doxycycline monohydrate 100 mg capsule 100 mg PO BID 10 Days Qty: 20 0RF Referrals: No Primary/Family,Physician [Primary Care Provider] - Patient/Caregiver Discharge Instructions Print Language: Albanian Discharge Order Discharge Orders: Discharge (Routine); Ordered 03/11/24 Ordered By: Himanshu Hein Quality Discharge Quality Measures VTE prophylaxis Attestestation Attestation I reviewed labs, imaging, EKG, home medications and prior available records. Face to face evaluation was performed by me. I have personally examined the patient and discussed assessment and plan with the IM team. I reviewed the resident note and agree with the plan with exceptions as below. Left upper extremity cellulitis Methamphetamine use IV drug use Concern for compartment syndrome Will discharge on Keflex and doxycycline Elevation of left upper extremity Counseled the patient regarding the importance of not using IV drugs or other recreational drugs Consulted surgery given the concern for compartment syndrome. Patient does have pulses at this time. No indication for fasciectomy Cleared by crisis team for discharge Time spent is 40 minutes. More than 50% of the time was spent on patient education and coordination of care.
== END 2024-03-11 14:30 | disposition left against medical advice (07) | DRG 383 ==
LOC: SERX 21:57 → SERHOLD 03-08 06:13 → S3SX 03-08 06:15
PROVIDERS: Nurse Practitioner Primary Care; Student in an Organized Health Care Education/Training Program; Admitting Provider Internal Medicine; Emergency Provider Emergency Medicine; Visit Provider Student in an Organized Health Care Education/Training Program
DX: L03.114 Cellulitis of left upper limb (principal); F15.90 Other stimulant use, unspecified, uncomplicated; I10 Essential (primary) hypertension; E66.812 Obesity, class 2; Z68.37 Body mass index [BMI] 37.0-37.9, adult; Z91.148 Patient's other noncompliance with medication regimen for other reason; Z56.0 Unemployment, unspecified; M79.89 Other specified soft tissue disorders; E87.6 Hypokalemia; E83.51 Hypocalcemia; Z66 Do not resuscitate; E87.1 Hypo-osmolality and hyponatremia; J06.9 Acute upper respiratory infection, unspecified; F17.210 Nicotine dependence, cigarettes, uncomplicated; Z53.29 Procedure and treatment not carried out because of patient's decision for other reasons
CPT/HCPCS: 36415; 71045; 73090; 73201; 80048; 80053; 80061; 80074; 80202; 83036; 83605; 83735; 84100; 84145; 84443; 85025; 85610; 85652; 85730; 86140; 86703; 87040; 87081; 87205; 87502; 90839; 93005; 93971; 94640; 94667; 96127; 96365; 96366; 96368; 99285; A4649; A9270; J0360; J0689; J1200; J1650; J2270; J2543; J3371; J3372; J7030; J7050; Q9967

== ENCOUNTER 2024-08-14 16:52 | Emergency (ER) | payer MEDICAID, SELFPAY ==
[2024-08-14 16:56] VITALS: BMI 30.2
[2024-08-14 17:00] VITALS: BP 174/120; BP 196/136; PULSE 100; RESP 16; TEMP 36.8; O2SAT 99
--- NOTE | 2024-08-14 17:10 | PD.EDMEDCL ---
ED Medical Clearance RME/HPI General Chief complaint: Medical Clearance Stated complaint: [facility] CLEARANCE Time Seen by Provider: 08/14/24 16:57 Arrival date/time: 08/14/24 16:52 RME / HPI RME / HPI Narrative: 39-year-old male patient with significant history of hypertension, told me that he did not take his medication today came in for evaluation regarding medical clearance due to elevated blood pressure. Patient is currently not having any complaints. No chest pain no headache no neck pain. Patient is ambulatory. In the facility patient blood pressure was noted to be 204/140. Related Information Allergies Allergy/AdvReac Type Severity Reaction Status Date / Time No Known Allergies Allergy Unverified 03/10/24 15:00 Review of Systems Review of Systems Narrative Review of Systems: Review of system reviewed and within normal limits except mentioned in HPI ED Exam Narrative Physical exam: VITAL SIGNS: Reviewed. GENERAL APPEARANCE: Alert and interactive, follows commands, no acute distress, HEAD AND FACE: Non-traumatic. ENT: PERRL, pink conjunctivitis, eyelid no trauma, Mucous membrane moist. NECK: Supple, nontender, no nuchal rigidity. CHEST: No tenderness, no crepitus, no paradoxical movement, no retractions. LUNGS: Clear, well ventilated, symmetric, no rales, no wheezing, no ronchi, no stridor, good breath sounds bilaterally. HEART: Regular rate, regular rhythm, no murmur, no gallops. ABDOMEN: Soft, positive bowel sounds, nondistended, no guarding, nontender, no rebound, no masses, RECTAL: Deferred. GENITAL: Deferred. NEUROLOGICAL: Gross motor function intact sensory function intact, Appropriate for age. MUSCULOSKELETAL: low back nontender, full range of motion. EXTREMITIES: Nontender, full range of motion. SKIN: Color pink, dry, no rash, no lacerations, no abrasions, no contusions. LYMPHATICS: Deferred. Course Quality Measures none Orders Category Date Time Status NIFEdipine [Procardia] Med 08/14/24 17:10 Discontinued 20 mg PO X1 ONE Vital Signs Vital signs: Vital Signs Temperature 98.2 F 08/14/24 17:00 Pulse Rate 100 08/14/24 17:00 Respiratory Rate 16 08/14/24 17:00 Blood Pressure 174/120 H 08/14/24 17:00 Pulse Oximetry (%) 99 08/14/24 17:00 Oxygen Delivery Method Room Air 08/14/24 17:00 Medical Clearance MDM Narrative MDM Narrative:: 39-year-old male patient with significant history of hypertension, told me that he did not take his medication today came in for evaluation regarding medical clearance due to elevated blood pressure. Patient is currently not having any complaints. No chest pain no headache no neck pain. Patient is ambulatory. In the facility patient blood pressure was noted to be 204/140. Patient received Procardia p.o. Blood pressure was noted to be 151/90 prior to discharge. Patient is medically cleared for incarceration. Patient data External records reviewed:: None Clinical information provided by:: patient Social determinants that could affect healthcare access:: none Patient has the following chronic illnesses:: Stable How is presenting disease/condition affected by chronic disease/condition?: exacerbated by Evaluation data The following diagnostics were reviewed and interpreted by me:: lab results and other (specify) Lab and/or radiology exams considered but not ordered:: None Interpretation Summary: None Medications / Prescriptions Medications or Prescriptions considered but not ordered:: none Medication administrations:: Medication Administration History Discontinued Medications Nifedipine (Nifedipine 10 Mg Capsule) 20 mg PO X1 ONE Stop: 08/14/24 17:11 Last Admin: 08/14/24 17:17 Dose: 20 mg Documented By: ESME Whiting Consultations Consultation(s) initiated? (list below): No Diagnosis Medical Clearance Differential Diagnosis: other (Medical clearance for incarceration, hypertension) Most likely diagnosis given after review of the tests above:: Medical clearance for incarceration, hypertension Admission Indicated Admission indicated?: not indicated Explain why admission is indicated or not indicated:: Medical cleared for incarceration Admission Request Was there a request for admission?: No Disposition Plan Disposition Plan: Discharge Discharge Attestation Discharge Attestation: Patient condition: Stable Discharge Plan Plan Patient Disposition: HOME (Self Care) Discharge Disposition comment: Stable Prescriptions/Referrals Referrals: No Primary/Family,Physician [Primary Care Provider] - In 1 week Problem List Clinical Impression: Medical clearance for incarceration Patient/Caregiver Discharge Instructions Discharge Activity: activity as tolerated Education Materials: Reducing Your Health Risks ... Additional Instructions: Thank you for the opportunity for serving you today. You are stable for discharged . You are advised to: Follow-up with your PCP in 1 to 2 days once you get out of halfway Print Language: Ukrainian Stand Alone Forms: Fidelina Award Info., Patient Portal Info Letter PA/BUSINESS SERVICES CLERK Supervising Physician PA/BUSINESS SERVICES CLERK Supervising Physician: MD Damon
[2024-08-14 17:17] VITALS: BP 174/120; PULSE 100
[2024-08-14] MEDS: NIFEdipine 10 MG CAPSULE 20 MG PO (17:17)
[2024-08-14 18:03] VITALS: BP 151/81
== END 2024-08-14 18:21 | disposition home or self-care (01) ==
PROVIDERS: Emergency Provider Emergency Medicine
DX: Z02.89 Encounter for other administrative examinations (principal); I10 Essential (primary) hypertension
CPT/HCPCS: 99282; A9270